=== PATIENT | male | born 1945 | race Caucasian/White ===

== ENCOUNTER → 2017-07-13 | Outpatient (CLI) | payer MEDICARE, OTHER ==
--- NOTE | 2017-07-13 10:56 | FL ---
EXAMINATION TYPE: FL barium swallow w video DATE OF EXAM: 07/13/2017 MODIFIED SWALLOW / DEGLUTITION STUDY CLINICAL HISTORY: Dysphagia. Pneumonitis due to inhalation of fluid or vomiting per order. TECHNIQUE: Deglutition study is performed utilizing thin liquid barium and barium thick applesauce. A total 40 seconds of fluoroscopic time was utilized during procedure. Approximately 10 cine sequence s were performed, no images are sent to PACS. COMPARISON: None. FINDINGS: The oral and pharyngeal phases show satisfactory initiation and propagation with all modali ties tested. There is no evidence of penetration or aspiration with any modality tested. No signifi cant pharyngeal residue was appreciated. IMPRESSION: Normal deglutition study. Please refer to speech therapist notes for further details if necessary.
== END | disposition home or self-care (01) ==
LOC: RADFLWHC 09:36
PROVIDERS: ATTEND Family Medicine
DX: J69.0 Pneumonitis due to inhalation of food and vomit (principal)
CPT/HCPCS: 74230

== ENCOUNTER → 2018-05-02 | Outpatient (CLI) | payer MEDICARE, OTHER ==
[2018-05-02 09:45] LABS: Basophils % (A) 0 %; Eosinophils # (A) 0.3 k/uL (0-0.7); Eosinophils % (A) 4 %; HCT 46.1 % (39.0-53.0); HGB 14.2 gm/dL (13.0-17.5); Lymphocytes # (A) 1.2 k/uL (1.0-4.8); Lymphocytes % (A) 16 %; MCH 28.5 pg (25.0-35.0); MCHC 30.9 g/dL (31.0-37.0); MCV 92.1 fL (80.0-100.0); Mean Platelet Volume 7.5; Monocytes # (A) 0.7 k/uL (0-1.0); Monocytes % (A) 9 %; Neutrophils # (A) 5.4 k/uL (1.3-7.7); Neutrophils % (A) 68 %; Platelet Count 283 k/uL (150-450); RDW 13.1 % (11.5-15.5); WBC 7.8 k/uL (3.8-10.6)
[2018-05-02 10:29] LABS: ALT 30 U/L (21-72); AST 30 U/L (17-59); Albumin 4.1 g/dL (3.5-5.0); Alkaline Phosphatase 85 U/L (38-126); Anion Gap 8 mmol/L; Blood Urea Nitrogen 26 mg/dL (9-20); Calcium 9.5 mg/dL (8.4-10.2); Carbon Dioxide 27 mmol/L (22-30); Chloride 103 mmol/L (98-107); Glucose 76 mg/dL (74-99); Potassium 5.3 mmol/L (3.5-5.1); Sodium 138 mmol/L (137-145); Total Bilirubin 0.3 mg/dL (0.2-1.3); Total Protein 7.3 g/dL (6.3-8.2)
== END | disposition home or self-care (01) ==
LOC: LABWHC1 08:36
PROVIDERS: ATTEND Psychiatry & Neurology Neurology
DX: E87.1 Hypo-osmolality and hyponatremia (principal); G40.909 Epilepsy, unspecified, not intractable, without status epilepticus; T42.1X5A Adverse effect of iminostilbenes, initial encounter
CPT/HCPCS: 36415; 80053; 85025

== ENCOUNTER → 2019-10-26 | Outpatient (CLI) | payer MEDICARE, OTHER ==
--- NOTE | 2019-10-26 12:10 | XR ---
EXAMINATION TYPE: XR shoulder complete RT DATE OF EXAM: 10/26/2019 CLINICAL HISTORY: Unknown injury with pain. TECHNIQUE: 2 views of the right shoulder are obtained. COMPARISON: None. FINDINGS: Exam suboptimal as there is underpenetration. There is suspected moderate narrowing at acro mion navicular joint. No acute fracture is evident. Glenohumeral joint is maintained. Overlying cloth ing material is seen. Visualized right RIBS are unremarkable. Osseous structures noted demineralized. IMPRESSION suboptimal study without acute fracture or dislocation right shoulder.
== END | disposition home or self-care (01) ==
LOC: RADXRMAIN 11:03
PROVIDERS: ATTEND Family Medicine
DX: M25.511 Pain in right shoulder (principal)

== ENCOUNTER → 2020-03-12 | Outpatient (CLI) | payer MEDICARE, OTHER ==
--- NOTE | 2020-03-12 10:12 | XR ---
EXAMINATION TYPE: XR abdomen 2V DATE OF EXAM: 03/12/2020 COMPARISON: 03/12/2020 HISTORY: Constipation TECHNIQUE: One view abdominal series FINDINGS: The osseous structures are intact. The bowel gas pattern is nonspecific. Extensive retained fecal de bris. Lung bases are clear. Curvature of the spine. Postoperative change left hip and arthropathy ri ght hip. Postsurgical change of the pelvis. IMPRESSION: 1. Nonspecific abdomen. Extensive retained fecal debris.
== END | disposition home or self-care (01) ==
LOC: RADXRMAIN 09:50
PROVIDERS: ATTEND Family Medicine
DX: K59.09 Other constipation (principal)
CPT/HCPCS: 74019

== ENCOUNTER 2020-03-15 16:42 | Inpatient (IN) | payer MEDICARE, OTHER ==
--- NOTE | 2020-03-15 17:13 | ED ---
Abdominal Pain HPI - General Source: patient Mode of arrival: ambulatory Limitations: no limitations <Sim Hollis - Last Filed: 03/16/20 00:22> <Tawanna Jackson - Last Filed: 03/24/20 00:41> - General Chief Complaint: Abdominal Pain Stated Complaint: constipation Time Seen by Provider: 03/15/20 16:51 - History of Present Illness Initial Comments: Patient is a 74-year-old male with history of developmental leg presenting to the emergency department with a chief complaint of constipation. Caregiver states the patient takes daily stool softeners and has not had an issue with constipation for over the last year. States the patient did not have a bowel movement yesterday but did have a small to medium sized after an enema. Caregiver states the patient's abdomen feels distended more usual and he is in d iscomfort when palpating the abdomen. States the patient does not have any urinary symptoms. No vomiting according to the caregiver. (Sim Hollis) - Related Data Home Medications Medication Instructions Recorded Confirmed Acetaminophen [Tylenol] 650 mg PO Q8H PRN 03/15/20 03/15/20 Calcium Polycarbophil [Fiber-Lax] 625 mg PO TID@0730,1600,192903/15/20 03/15/20 Docusate [Colace] 100 mg PO DAILY@72903/15/20 03/15/20 Doxazosin Mesylate 8 mg PO DAILY@192903/15/20 03/15/20 Ferrous Sulfate [Iron] 325 mg PO DAILY@72903/15/20 03/15/20 Fluocinonide 1 applic TOPICAL DAILY PRN 03/15/20 03/15/20 Fluticasone Nasal [place] [Flonase 2 spr EA NOSTRIL HS PRN 03/15/20 03/15/20 Nasal [place]] Ibuprofen [Motrin] 800 mg PO Q8H PRN 03/15/20 03/15/20 Lactulose 10 gm PO DAILY PRN 03/15/20 03/15/20 Loratadine 10 mg PO DAILY@192903/15/20 03/15/20 Losartan Potassium 50 mg PO DAILY@72903/15/20 03/15/20 Magnesium Hydroxide [Milk of 2,400 mg PO ONCE PRN 03/15/20 03/15/20 Magnesia] Menthol [Biofreeze] 1 applic TOPICAL QID PRN 03/15/20 03/15/20 Menthol-Zinc Oxide Oint 1 applic TOPICAL BID PRN 03/15/20 03/15/20 [Calmoseptine Oint] Na Phos,M-B/Na Phos,Di-Ba [Fleet 133 ml RECTAL ONCE PRN 03/15/20 03/15/20 Adult] Nystatin 100,000 Unit/gm Powd 1 applic TOPICAL BID PRN 03/15/20 03/15/20 [Mycostatin Powder] OXcarbazepine [Trileptal] 150 mg PO BID@07,192903/15/20 03/15/20 Omeprazole 20 mg PO DAILY@72903/15/20 03/15/20 Polyethylene Glycol 3350 [Miralax] 17 gm PO DAILY PRN 03/15/20 03/15/20 QUEtiapine [SEROquel] 50 mg PO HS@192903/15/20 03/15/20 QUEtiapine [SEROquel] 100 mg PO HS@192903/15/20 03/15/20 Selenium Sulfate Shampoo 1 applic TOPICAL SUWE 03/15/20 03/15/20 Sodium Bicarbonate Tab 650 mg PO BID@0730,192903/15/20 03/15/20 Sodium Chloride 0.9% Irrigatio 5 ml IRRIGATION BID@729,192903/15/20 03/15/20 [Saline 0.9% Irrigation Bottle] Previous Rx's Medication Instructions Recorded Metoclopramide [Reglan] 5 mg PO ACHS #120 tab 03/20/20 Allergies Allergy/AdvReac Type Severity Reaction Status Date / Time amoxicillin Allergy Unknown Verified 03/15/20 21:32 orange Allergy Unknown Verified 03/15/20 22:04 tetracycline Allergy Unknown Verified 03/15/20 21:32 tomato Allergy Unknown Verified 03/15/20 22:04 Review of Systems ROS Other: All systems not noted in ROS Statement are negative. <Sim Hollis - Last Filed: 03/16/20 00:22> ROS Other: All systems not noted in ROS Statement are negative. <Tawanna Jackson - Last Filed: 03/24/20 00:41> ROS Statement: Those systems with pertinent positive or pertinent negative responses have been documented in the HPI. Past Medical History Past Medical History: Prostate Disorder, Seizure Disorder Additional Past Medical History / Comment(s): "intellectual disability", blind, osteoporosis History of Any Multi-Drug Resistant Organisms: None Reported Additional Past Surgical History / Comment(s): hip replacement Past Psychological History: No Psychological Hx Reported Smoking Status: Never smoker Past Alcohol Use History: None Reported Past Drug Use History: None Reported <Sim Hollis - Last Filed: 03/16/20 00:22> General Exam Limitations: no limitations General appearance: alert, in no apparent distress Head exam: Present: atraumatic, normocephalic, normal inspection Eye exam: Present: normal appearance, PERRL, EOMI Pupils: Present: normal accommodation ENT exam: Present: normal exam, normal oropharynx, mucous membranes moist Neck exam: Present: normal inspection, full ROM Respiratory exam: Present: normal lung sounds bilaterally. Absent: respiratory distress, wheezes, rales Cardiovascular Exam: Present: regular rate, normal rhythm, normal heart sounds GI/Abdominal exam: Present: soft, distended, hyperactive bowel sounds Extremities exam: Present: normal inspection, full ROM, normal capillary refill, other (+2 ulnar and radial pulses bilateral.) Back exam: Present: normal inspection, full ROM Neurological exam: Present: alert Skin exam: Present: warm, dry, intact, normal color <Sim Hollis - Last Filed: 03/16/20 00:22> Course Vital Signs 03/15/20 03/15/20 03/16/20 16:44 21:23 00:48 Temperature 97.9 F 98.0 F 98.8 F Pulse Rate 100 104 H 101 H Respiratory 20 18 19 Rate Blood Pressure 120/83 146/84 147/97 O2 Sat by Pulse 98 96 95 Oximetry Medical Decision Making - Lab Data Result diagrams: 03/15/20 23:40 03/15/20 22:21 <Sim Hollis - Last Filed: 03/16/20 00:22> - Lab Data Result diagrams: 03/18/20 07:21 03/18/20 07:21 <Tawanna Jackson - Last Filed: 03/24/20 00:41> - Medical Decision Making Patient is 74-year-old male with history of developmental delay presenting to emergency Department the chief complaint of constipation. Patient does appear to have a distended abdomen and physical examination. Unable to assess for tenderness because the patient is nonverbal. CBC shows mild anemia. BMP shows elevated BUN with slight decrease and creatinine. Lactic acid within normal limits. CT of abdomen and pelvis pending. KUB shows constipation, dilated stomach suggesting gastroparesis or gastric outlet obstruction. Stomach dilation is increased compared to old exam. Patient had an enema 2 days ago that was prescribed to him by his PCP. Patient also had an enema today prior to ED arrival. Patient had an enema, milk of molasses today that was unsucces sful. No NG tube required at this time considering the patient is not vomiting. Patient will be admitted for further medical management. Case discussed with . Admitting physician is (Sim Hollis) I was available for consultation in the emergency department. The history and physical exam were done by the midlevel provider. I was consulted for this patients care. I reviewed the case with the midlevel provider and based on their presentation of the patient, I agree with the assessment, medical decision making and plan of care as documented. I discussed the case with Dr. Watson who agreed to admission. Chart was dictated using [employer] dictation software. Attempts were made to correct any dictation errors however some typographical errors may persist. Patient was seen during a national state of emergency due to the Covid-19 pandemic. (Tawanna Jackson) - Lab Data Lab Results 03/15/20 03/15/20 03/15/20 Range/Units 22:21 22:42 22:56 WBC (3.8-10.6) k/uL RBC (4.30-5.90) m/uL Hgb (13.0-17.5) gm/dL Hct (39.0-53.0) % MCV (80.0-100.0) fL MCH (25.0-35.0) pg MCHC (31.0-37.0) g/dL RDW (11.5-15.5) % Plt Count (150-450) k/uL Neutrophils % (Manual) % Lymphocytes % (Manual) % Monocytes % (Manual) % Neutrophils # (Manual) (1.3-7.7) k/uL Lymphocytes # (Manual) (1.0-4.8) k/uL Monocytes # (Manual) (0-1.0) k/uL Nucleated RBCs (0-0) /100 WBC Manual Slide Review Anisocytosis (manual) PT (9.0-12.0) sec INR (<1.2) APTT (22.0-30.0) sec Sodium 136 L (137-145) mmol/L Potassium 4.9 (3.5-5.1) mmol/L Chloride 105 (98-107) mmol/L Carbon Dioxide 25 (22-30) mmol/L Anion Gap 6 mmol/L BUN 26 H (9-20) mg/dL Creatinine 0.50 L (0.66-1.25) mg/dL Est GFR (CKD-EPI)AfAm >90 (>60 ml/min/1.73 sqM) Est GFR (CKD-EPI)NonAf >90 (>60 ml/min/1.73 sqM) Glucose 119 H (74-99) mg/dL Plasma Lactic Acid Jeremias 1.1 (0.7-2.0) mmol/L Calcium 9.3 (8.4-10.2) mg/dL Total Bilirubin 0.4 (0.2-1.3) mg/dL AST 47 (17-59) U/L ALT 29 (4-49) U/L Alkaline Phosphatase 77 (38-126) U/L Total Protein 7.4 (6.3-8.2) g/dL Albumin 4.0 (3.5-5.0) g/dL Coronavirus (PCR) Not Detected (Not Detected) 03/15/20 03/16/20 Range/Units 23:40 14:25 WBC 14.3 H (3.8-10.6) k/uL RBC 3.92 L (4.30-5.90) m/uL Hgb 11.9 L (13.0-17.5) gm/dL Hct 36.1 L (39.0-53.0) % MCV 92.0 (80.0-100.0) fL MCH 30.5 (25.0-35.0) pg MCHC 33.1 (31.0-37.0) g/dL RDW 13.3 (11.5-15.5) % Plt Count (150-450) k/uL Neutrophils % (Manual) 79 % Lymphocytes % (Manual) 11 % Monocytes % (Manual) 10 % Neutrophils # (Manual) 11.30 H (1.3-7.7) k/uL Lymphocytes # (Manual) 1.57 (1.0-4.8) k/uL Monocytes # (Manual) 1.43 H (0-1.0) k/uL Nucleated RBCs 0 (0-0) /100 WBC Manual Slide Review Performed Anisocytosis (manual) Present PT 10.8 (9.0-12.0) sec INR 1.1 (<1.2) APTT 26.2 (22.0-30.0) sec Sodium (137-145) mmol/L Potassium (3.5-5.1) mmol/L Chloride (98-107) mmol/L Carbon Dioxide (22-30) mmol/L Anion Gap mmol/L BUN (9-20) mg/dL Creatinine (0.66-1.25) mg/dL Est GFR (CKD-EPI)AfAm (>60 ml/min/1.73 sqM) Est GFR (CKD-EPI)NonAf (>60 ml/min/1.73 sqM) Glucose (74-99) mg/dL Plasma Lactic Acid Jeremias (0.7-2.0) mmol/L Calcium (8.4-10.2) mg/dL Total Bilirubin (0.2-1.3) mg/dL AST (17-59) U/L ALT (4-49) U/L Alkaline Phosphatase (38-126) U/L Total Protein (6.3-8.2) g/dL Albumin (3.5-5.0) g/dL Coronavirus (PCR) (Not Detected) Disposition Is patient prescribed a controlled substance at d/c from ED?: No Time of Disposition: 00:26 <Sim Hollis - Last Filed: 03/16/20 00:22> <Tawanna Jackson - Last Filed: 03/24/20 00:41> Clinical Impression: Abdominal distention, Constipation, Dilation of stomach Disposition: ADMITTED IP TO THIS HOSP Condition: Good
--- NOTE | 2020-03-15 17:48 | XR ---
EXAMINATION TYPE: XR KUB DATE OF EXAM: 03/15/2020 COMPARISON: 03/12/2020 HISTORY: Constipation TECHNIQUE: 2 views supine FINDINGS: There is dilated air-filled stomach. There is retained fecal material in the large bowel. T here is left hip prosthesis. There is slight blunting right costophrenic angle. There is no evidence of free air. IMPRESSION: Constipation. Dilated stomach suggestive of gastroparesis or gastric outlet obstruction. Mild pleural reaction at the right lung base. No free air. Constipation similar to old exam. Dilated stomach is a change compared to old exam.
[2020-03-15 23:04] LABS: ALT 29 U/L (4-49); AST 47 U/L (17-59); African American GFR (CKD) >90 (>60 ml/min/1.73 sqM); Alkaline Phosphatase 77 U/L (38-126); Anion Gap 6 mmol/L; Blood Urea Nitrogen 26 mg/dL (9-20); Calcium 9.3 mg/dL (8.4-10.2); Carbon Dioxide 25 mmol/L (22-30); Chloride 105 mmol/L (98-107); Glucose 119 mg/dL (74-99); Non-African American GFR(CKD) >90 (>60 ml/min/1.73 sqM); Sodium 136 mmol/L (137-145); Total Bilirubin 0.4 mg/dL (0.2-1.3); Total Protein 7.4 g/dL (6.3-8.2)
[2020-03-15 23:07] LABS: Potassium 4.9 mmol/L (3.5-5.1)
[2020-03-16 00:15] LABS: HCT 36.1 % (39.0-53.0); HGB 11.9 gm/dL (13.0-17.5); MCH 30.5 pg (25.0-35.0); MCHC 33.1 g/dL (31.0-37.0); Mean Platelet Volume 10.1; RBC 3.92 m/uL (4.30-5.90); RDW 13.3 % (11.5-15.5); WBC 14.3 k/uL (3.8-10.6)
[2020-03-16] MEDS ORDERED: NALOXONE 0.4 MG/ML 1 ML VIAL IV PRN (00:20)
[2020-03-16] MEDS ORDERED: LORazepam 2 MG/ML INJ IV PRN (00:20)
[2020-03-16] MEDS: SODIUM CHLORIDE 0.9% 1,000 ML IV SCH ×2 (00:47→14:14)
[2020-03-16 00:53] LABS: Lymphocytes # (M) 1.57 k/uL (1.0-4.8); Monocytes # (M) 1.43 k/uL (0-1.0); Neutrophils % (M) 79 %; Nucleated Red Blood Cells 0 /100 WBC (0-0); Total Cells Counted 100
[2020-03-16 00:57] LABS: Anisocytosis (M) Present
--- NOTE | 2020-03-16 00:57 | CT ---
EXAMINATION TYPE: CT abdomen pelvis w con DATE OF EXAM: 03/16/2020 COMPARISON: None HISTORY: constipated CT DLP: 1631.3 mGycm Automated exposure control for dose reduction was used. CONTRAST: Performed with IV Contrast, patient injected with 100 mL of Isovue 300. There is some interstitial infiltrates and atelectasis at the lung bases. There is hiatal hernia that contains fluid. Stomach is large and dilated with air and fluid. There is probably dilated thoracic esophagus with reflux of fluid. Liver shows no focal defect. Gallbladder appears normal. Bile ducts are not dilated. Spleen is intact . There is no evidence of pancreatic mass. There is no adrenal mass. Kidneys show satisfactory contra st opacification. There is no hydronephrosis. Delayed images show normal renal excretion. There is no retroperitoneal adenopathy. Ureters are not dilated. Bladder distends smoothly. There is no free fluid in the pelvis. There is metal artifact from left hip prosthesis. There is some retained fecal material in the large bowel. There is no evidence of free air. There is no mesenteric edema. There is no ascites. Appendix is not seen. There is no sign of thickened appendi x. Lumbar vertebra have normal alignment. Disc spaces are fairly normal. Bony pelvis is intact. I see no bony destructive process. IMPRESSION: Constipation. Dilated air and fluid-filled stomach could relate to significant gastroparesis or gastric outlet obst ruction. No obstructing mass identified. Third and fourth part of the duodenum are not dilated. Dilat ed lower thoracic fluid-filled esophagus suggestive of reflux. Hiatal hernia.
[2020-03-16] MEDS ORDERED: LACTULOSE 20 GM/30 ML CUP PO PRN (07:50)
[2020-03-16] MEDS ORDERED: ACETAMINOPHEN TAB 325 MG TAB PO PRN (07:50)
[2020-03-16] MEDS ORDERED: METHYL SALICYLATE/MENTHOL CREAM 5 OZ TOPICAL PRN (07:50)
[2020-03-16] MEDS ORDERED: MENTHOL-ZINC OXIDE OINT 113 GM TUBE TOPICAL PRN (07:50)
[2020-03-16] MEDS ORDERED: BETAMETHASONE DIPROPIONATE 0.05% CREAM 15 GM TUBE TOPICAL PRN (07:50)
[2020-03-16] MEDS ORDERED: NYSTATIN 100,000 UNIT/GM POWD 15 GM TOPICAL PRN (07:50)
[2020-03-16] MEDS ORDERED: POLYETHYLENE GLYCOL 3350 17 GM POWD.PACK PO PRN (07:50)
[2020-03-16] MEDS ORDERED: FLUTICASONE 50MCG/SPRAY NASAL 16GM EA NOSTRIL PRN (07:50)
--- NOTE | 2020-03-16 08:28 | P.HPIM ---
History of Present Illness H&P Date: 03/16/20 74 years old male with the history of developmental delay patient of Dr. Juares with past medical history of prostate cancer, seizure disorder, osteoporosis , legally blind comes in with acute abdominal pain which is generalized in nature. Patient is a poor historian due to his intellectual disability and is unable to provide any history. According to the ER physician and the caregiver history patient takes daily stool softener has been and had not had any issue with constipation in the past. He did not have a bowel movement daily for yesterday. He gets enema regularly but had a small output to the enema given yesterday. Caregiver felt the abdomen was more distended and sujey jewell had discomfort when palpating the abdomen. CT abdomen and pelvis was done in the ER that suggested some Hytone hernia with the dilation of stoma with air and fluid level and dilated esophagus concerning for gastric outlet obstruction versus gastroparesis. Fecal matter was noted in the large bowel but no concern for infection was made. Vitals as a stable temp is 98 pulse 104 respiratory ra te 18 blood pressure 146/84 oxygen saturation 96% on room air. On assessment patient's labs WBC 14.3 hemoglobin is 11.9 sodium 136 BUN 26 creatinine 0.5 glucose of 119. Patient did get milk of molasses yesterday with no improvement and hence bowel movements. Patient's multiple medications for inducing constipation continue sodium bicarb, calcium tablets, iron tablets. GI consulted for abdominal pain, gastric outlet obstruction noted on the CAT scan. Review of Systems Unable to obtain due to intellectual disability Past Medical History Past Medical History: Prostate Disorder, Seizure Disorder Additional Past Medical History / Comment(s): "intellectual disability", blind, osteoporosis History of Any Multi-Drug Resistant Organisms: None Reported Additional Past Surgical History / Comment(s): hip replacement Past Psychological History: No Psychological Hx Reported Smoking Status: Never smoker Past Alcohol Use History: None Reported Past Drug Use History: None Reported Medications and Allergies Home Medications Medication Instructions Recorded Confirmed Type Acetaminophen [Tylenol] 650 mg PO Q8H PRN 03/15/20 03/15/20 History Calcium Carbonate/Vitamin D3 1 tab PO DAILY@0730 03/15/20 03/15/20 History [Calcium 500-Vit D3 200 Tablet] Calcium Polycarbophil [Fiber-Lax] 625 mg PO TID@0730,1600,1930 03/15/2003/15/20 History Docusate [Colace] 100 mg PO DAILY@72903/15/20 03/15/20 History Doxazosin Mesylate 8 mg PO DAILY@192903/15/20 03/15/20 History Ferrous Sulfate [Iron] 325 mg PO DAILY@72903/15/20 03/15/20 History Fluocinonide 1 applic TOPICAL DAILY PRN 03/15/20 03/15/20 History Fluticasone Nasal [place] [Flonase 2 spr EA NOSTRIL HS PRN 03/15/20 03/15/20 History Nasal [place]] Ibuprofen [Motrin] 800 mg PO Q8H PRN 03/15/20 03/15/20 History Lactulose 10 gm PO DAILY PRN 03/15/20 03/15/20 History Loratadine 10 mg PO DAILY@192903/15/20 03/15/20 History Losartan Potassium 50 mg PO DAILY@72903/15/20 03/15/20 History Magnesium Hydroxide [Milk of 2,400 mg PO ONCE PRN 03/15/20 03/15/20 History Magnesia] Menthol [Biofreeze] 1 applic TOPICAL QID PRN 03/15/20 03/15/20 History Menthol-Zinc Oxide Oint 1 applic TOPICAL BID PRN 03/15/20 03/15/20 History [Calmoseptine Oint] Na Phos,M-B/Na Phos,Di-Ba [Fleet 133 ml RECTAL ONCE PRN 03/15/20 03/15/20 History Adult] Nystatin 100,000 Unit/gm Powd 1 applic TOPICAL BID PRN 03/15/20 03/15/20 History [Mycostatin Powder] OXcarbazepine [Trileptal] 150 mg PO BID@0730,192903/15/20 03/15/20 History Omeprazole 20 mg PO DAILY@72903/15/20 03/15/20 History Polyethylene Glycol 3350 [Miralax] 17 gm PO DAILY PRN 03/15/20 03/15/20 History QUEtiapine [SEROquel] 50 mg PO HS@192903/15/20 03/15/20 History QUEtiapine [SEROquel] 100 mg PO HS@192903/15/20 03/15/20 History Selenium Sulfate Shampoo 1 applic TOPICAL SUWE 03/15/20 03/15/20 History Sodium Bicarbonate Tab 650 mg PO BID@0730,192903/15/20 03/15/20 History Sodium Chloride 0.9% Irrigatio 5 ml IRRIGATION BID@0730,192903/15/20 03/15/20 History [Saline 0.9% Irrigation Bottle] Allergies Allergy/AdvReac Type Severity Reaction Status Date / Time amoxicillin Allergy Unknown Verified 03/15/20 21:32 orange Allergy Unknown Verified 03/15/20 22:04 tetracycline Allergy Unknown Verified 03/15/20 21:32 tomato Allergy Unknown Verified 03/15/20 22:04 Physical Exam Vitals: Vital Signs Temp Pulse Pulse Resp BP BP Pulse Ox 03/16/20 04:50 99.6 F 80 17 110/68 95 03/16/20 02:16 98.9 F 85 19 134/75 99 03/16/20 00:48 98.8 F 101 H 19 147/97 95 03/15/20 21:23 98.0 F 104 H 18 146/84 96 03/15/20 16:44 97.9 F 100 20 120/83 98 Intake and Output 03/15/20 03/16/20 03/16/20 22:59 06:59 14:59 Intake Total 300 Balance 300 Intake: Intake, IV Titration 300 Amount Sodium Chloride 0.9% 1, 300 000 ml @ 75 mls/hr IV . [id number] [facility] Rx#:[id number] Oral 0 Other: Voiding Method Incontinent # Voids 1 Weight 71.214 kg - Constitutional General appearance: cooperative, no acute distress, thin-appearing appears comfortable - EENT Eyes: eyes closed, no orbits, tongue sticking out ENT: hearing grossly normal - Neck Neck: no lymphadenopathy, normal ROM, no other, no rigidity, no stridor, no thyromegaly - Respiratory Respiratory: bilateral: CTA, negative: diminished, dullness, rales, rhonchi - Cardiovascular Rhythm: regular Heart sounds: normal: S1, S2 Abnormal Heart Sounds: no systolic murmur, no diastolic murmur, no rub, no S3 Gallop, no S4 Gallop, no click, no other - Gastrointestinal General gastrointestinal: normal bowel sounds, soft distended tender to palpate - Integumentary Integumentary: no rash - Neurologic Neurologic: CNII-XII intact - Musculoskeletal Musculoskeletal: gait not assessed, strength equal bilaterally,, hands in partial flexion , b/l lower ext in boot - Psychiatric Psychiatric: Orientation could not be assessed, appropriate affect Results CBC & Chem 7: 03/15/20 23:40 03/15/20 22:21 Labs: Abnormal Lab Results - Last 24 Hours (Table) 03/15/20 03/15/20 Range/Units 22:21 23:40 WBC 14.3 H (3.8-10.6) k/uL RBC 3.92 L (4.30-5.90) m/uL Hgb 11.9 L (13.0-17.5) gm/dL Hct 36.1 L (39.0-53.0) % Neutrophils # (Manual) 11.30 H (1.3-7.7) k/uL Monocytes # (Manual) 1.43 H (0-1.0) k/uL Sodium 136 L (137-145) mmol/L BUN 26 H (9-20) mg/dL Creatinine 0.50 L (0.66-1.25) mg/dL Glucose 119 H (74-99) mg/dL Thrombosis Risk Factor Assmnt - DVT/VTE Prophylaxis DVT/VTE Prophylaxis: Pharmacologic Prophylaxis ordered Assessment and Plan Plan: #1 acute abdominal pain likely secondary to constipation though gastric outlet obstruction noted on CAT scan. Surgery consulted for possible EGD for dilation. Patient has failed milk of molasses anemia continue lactulose 10 mg daily continue Colace 100 mg twice a day continue MiraLAX daily. Hold calcium on discharge that could be making patient constipated. Patient hemoglobin is stable iron supplement discontinued. #2 hypertension continue losartan 50 mg by mouth daily #3 acute kidney injury continue IV fluids at 75 mL/h BMP tomorrow #4 history of seizures continue Seroquel at 150 mg at bedtime continue Trileptal 150 twice a day #5Code status full code #6 disposition patient needed to use 1-2 inpatient nights for stabilization before discharge #7 GERD continue pantoprazole 40 mg by mouth daily #8 DVT prophylaxis heparin sq BID
[2020-03-16] MEDS: HEPARIN SODIUM,PORCINE 5,000 UNIT/ML 1 ML VIAL SQ SCH ×2 (09:11→20:44)
[2020-03-16] MEDS: PANTOPRAZOLE 40 MG TABLET PO SCH (13:05)
[2020-03-16] MEDS: OXcarbazepine 150 MG TAB PO SCH ×2 (13:06→20:44)
[2020-03-16] MEDS: LOSARTAN 50 MG TAB PO SCH (13:06)
[2020-03-16] MEDS: DOCUSATE 100 MG CAP PO SCH ×2 (13:06→20:43)
[2020-03-16] MEDS: [UNRECOGNIZED DRUG - OTHER] TOPICAL SCH (13:06)
--- NOTE | 2020-03-16 14:05 | P.GSCN ---
History of Present Illness Consult date: 03/16/20 Reason for Consult: Abdominal distention History of present illness: The patient's a 74-year-old male who has developmental delays. He's been noted to be progressively more distended and there is concern for discomfort in his abdomen so he is brought into the emergency department. Workup was concerning for markedly distended stomach and esophagus. I spoke with the patient's sister who is legal guardian. She denies any prior history of ulcer disease. In general he doesn't complain of any pain. He does take Stool softeners and enemas for some constipation Review of Systems All systems: negative Past Medical History Past Medical History: Prostate Disorder, Seizure Disorder Additional Past Medical History / Comment(s): "intellectual disability", blind, osteoporosis History of Any Multi-Drug Resistant Organisms: None Reported Additional Past Surgical History / Comment(s): hip replacement Past Anesthesia/Blood Transfusion Reactions: No Reported Reaction Past Psychological History: No Psychological Hx Reported Smoking Status: Never smoker Past Alcohol Use History: None Reported Past Drug Use History: None Reported - Past Family History Father Family Medical History: Diabetes Mellitus Additional Family Medical History / Comment(s): Per sister (LG) father had DM an d heart problems Medications and Allergies Home Medications Medication Instructions Recorded Confirmed Type Acetaminophen [Tylenol] 650 mg PO Q8H PRN 03/15/20 03/15/20 History Calcium Carbonate/Vitamin D3 1 tab PO DAILY@72903/15/20 03/15/20 History [Calcium 500-Vit D3 200 Tablet] Calcium Polycarbophil [Fiber-Lax] 625 mg PO TID@0730,1600,192903/15/20 03/15/20 History Docusate [Colace] 100 mg PO DAILY@72903/15/20 03/15/20 History Doxazosin Mesylate 8 mg PO DAILY@192903/15/20 03/15/20 History Ferrous Sulfate [Iron] 325 mg PO DAILY@72903/15/20 03/15/20 History Fluocinonide 1 applic TOPICAL DAILY PRN 03/15/20 03/15/20 History Fluticasone Nasal [place] [Flonase 2 spr EA NOSTRIL HS PRN 03/15/20 03/15/20 History Nasal [place]] Ibuprofen [Motrin] 800 mg PO Q8H PRN 03/15/20 03/15/20 History Lactulose 10 gm PO DAILY PRN 03/15/20 03/15/20 History Loratadine 10 mg PO DAILY@192903/15/20 03/15/20 History Losartan Potassium 50 mg PO DAILY@72903/15/20 03/15/20 History Magnesium Hydroxide [Milk of 2,400 mg PO ONCE PRN 03/15/20 03/15/20 History Magnesia] Menthol [Biofreeze] 1 applic TOPICAL QID PRN 03/15/20 03/15/20 History Menthol-Zinc Oxide Oint 1 applic TOPICAL BID PRN 03/15/20 03/15/20 History [Calmoseptine Oint] Na Phos,M-B/Na Phos,Di-Ba [Fleet 133 ml RECTAL ONCE PRN 03/15/20 03/15/20 History Adult] Nystatin 100,000 Unit/gm Powd 1 applic TOPICAL BID PRN 03/15/20 03/15/20 History [Mycostatin Powder] OXcarbazepine [Trileptal] 150 mg PO BID@729,192903/15/20 03/15/20 History Omeprazole 20 mg PO DAILY@72903/15/20 03/15/20 History Polyethylene Glycol 3350 [Miralax] 17 gm PO DAILY PRN 03/15/20 03/15/20 History QUEtiapine [SEROquel] 50 mg PO HS@192903/15/20 03/15/20 History QUEtiapine [SEROquel] 100 mg PO HS@192903/15/20 03/15/20 History Selenium Sulfate Shampoo 1 applic TOPICAL SUWE 03/15/20 03/15/20 History Sodium Bicarbonate Tab 650 mg PO BID@729,192903/15/20 03/15/20 History Sodium Chloride 0.9% Irrigatio 5 ml IRRIGATION BID@729,192903/15/20 03/15/20 History [Saline 0.9% Irrigation Bottle] Allergies Allergy/AdvReac Type Severity Reaction Status Date / Time amoxicillin Allergy Unknown Verified 03/15/20 21:32 orange Allergy Unknown Verified 03/15/20 22:04 tetracycline Allergy Unknown Verified 03/15/20 21:32 tomato Allergy Unknown Verified 03/15/20 22:04 Surgical - Exam Osteopathic Statement: *. No significant issues noted on an osteopathic structural exam other than those noted in the History and Physical/Consult. Vital Signs Temp Pulse Resp BP Pulse Ox 97.9 F 100 20 120/83 98 03/15/20 16:44 03/15/20 16:44 03/15/20 16:44 03/15/20 16:44 03/15/20 16:44 - General No obvious distress, patient responds by moving his head slightly to verbal and tactile stimuli. - Eyes Absent or very small eyes - Respiratory normal expansion, clear to auscultation - Cardiovascular Rhythm: regular - Abdomen Abdomen: bowel sounds, no guarding, no rigid, no rebound, distended (Tympanitic) Hernia: no umbilical Results - Labs 03/15/20 23:40 03/15/20 22:21 Abnormal Lab Results - Last 24 Hours (Table) 03/15/20 03/15/20 Range/Units 22:21 23:40 WBC 14.3 H (3.8-10.6) k/uL RBC 3.92 L (4.30-5.90) m/uL Hgb 11.9 L (13.0-17.5) gm/dL Hct 36.1 L (39.0-53.0) % Neutrophils # (Manual) 11.30 H (1.3-7.7) k/uL Monocytes # (Manual) 1.43 H (0-1.0) k/uL Sodium 136 L (137-145) mmol/L BUN 26 H (9-20) mg/dL Creatinine 0.50 L (0.66-1.25) mg/dL Glucose 119 H (74-99) mg/dL Diabetes panel 03/15/20 Range/Units 22:21 Sodium 136 L (137-145) mmol/L Potassium 4.9 (3.5-5.1) mmol/L Chloride 105 (98-107) mmol/L Carbon Dioxide 25 (22-30) mmol/L BUN 26 H (9-20) mg/dL Creatinine 0.50 L (0.66-1.25) mg/dL Glucose 119 H (74-99) mg/dL Calcium 9.3 (8.4-10.2) mg/dL AST 47 (17-59) U/L ALT 29 (4-49) U/L Alkaline Phosphatase 77 (38-126) U/L Total Protein 7.4 (6.3-8.2) g/dL Albumin 4.0 (3.5-5.0) g/dL Calcium panel 03/15/20 Range/Units 22:21 Calcium 9.3 (8.4-10.2) mg/dL Albumin 4.0 (3.5-5.0) g/dL Pituitary panel 03/15/20 Range/Units 22:21 Sodium 136 L (137-145) mmol/L Potassium 4.9 (3.5-5.1) mmol/L Chloride 105 (98-107) mmol/L Carbon Dioxide 25 (22-30) mmol/L BUN 26 H (9-20) mg/dL Creatinine 0.50 L (0.66-1.25) mg/dL Glucose 119 H (74-99) mg/dL Calcium 9.3 (8.4-10.2) mg/dL Adrenal panel 03/15/20 Range/Units 22:21 Sodium 136 L (137-145) mmol/L Potassium 4.9 (3.5-5.1) mmol/L Chloride 105 (98-107) mmol/L Carbon Dioxide 25 (22-30) mmol/L BUN 26 H (9-20) mg/dL Creatinine 0.50 L (0.66-1.25) mg/dL Glucose 119 H (74-99) mg/dL Calcium 9.3 (8.4-10.2) mg/dL Total Bilirubin 0.4 (0.2-1.3) mg/dL AST 47 (17-59) U/L ALT 29 (4-49) U/L Alkaline Phosphatase 77 (38-126) U/L Total Protein 7.4 (6.3-8.2) g/dL Albumin 4.0 (3.5-5.0) g/dL - Imaging CT scan - abdomen: report reviewed, image reviewed Assessment and Plan (1) Abdominal distention Current Visit: Yes Status: Acute Code(s): R14.0 - ABDOMINAL DISTENSION (GASEOUS) SNOMED Code(s): 74719207 (2) Constipation Current Visit: Yes Status: Acute Code(s): K59.00 - CONSTIPATION, UNSPECIFIED SNOMED Code(s): 12235462 (3) Dilation of stomach Current Visit: Yes Status: Acute Code(s): K31.89 - OTHER DISEASES OF STOMACH AND DUODENUM SNOMED Code(s): 260370463 Plan: I spoke with the patient's legal guardian on the phone. Recommended we rule out any gastric outlet obstruction by doing an EGD. If there is some Chronic narrowing in the pylorus, This potentially could be treated with balloon dilation. If there is no evidence of a Gastric outlet obstruction Then I recommend aGastric emptying study. Further recommendations to follow.
[2020-03-16 14:49] LABS: INR 1.1 (<1.2); Partial Thromboplastin Time 26.2 sec (22.0-30.0); Prothrombin Time 10.8 sec (9.0-12.0)
[2020-03-16] MEDS: QUEtiapine 100 MG TAB PO SCH (20:43)
[2020-03-16] MEDS: DOXAZOSIN 4 MG TAB PO SCH (20:43)
[2020-03-16] MEDS: SODIUM CHLORIDE 0.9% IRRIG 1,000 ML BTL IRRIGATION SCH (20:49)
[2020-03-16] MEDS: QUEtiapine 50 MG TAB PO SCH (20:50)
[2020-03-17] MEDS: SODIUM CHLORIDE 0.9% 1,000 ML IV SCH ×2 (03:52→18:38)
[2020-03-17] MEDS: HEPARIN SODIUM,PORCINE 5,000 UNIT/ML 1 ML VIAL SQ SCH ×2 (08:22→20:12)
[2020-03-17] MEDS: LOSARTAN 50 MG TAB PO SCH (08:22)
[2020-03-17] MEDS: OXcarbazepine 150 MG TAB PO SCH ×2 (08:22→20:12)
[2020-03-17] MEDS: PANTOPRAZOLE 40 MG TABLET PO SCH (08:22)
[2020-03-17] MEDS: DOCUSATE 100 MG CAP PO SCH ×2 (08:22→20:12)
[2020-03-17] MEDS: SODIUM CHLORIDE 0.9% IRRIG 1,000 ML BTL IRRIGATION SCH ×2 (08:23→20:21)
--- NOTE | 2020-03-17 12:43 | P.PN ---
Subjective Progress Note Date: 03/17/20 74-year-old male with the history of developmental delay patient of Dr. Juares with past medical history of prostate cancer, seizure disorder, osteoporosis, legally blind comes in with acute abdominal pain which is generalized in nature. Patient is a poor historian due to his intellectual d isability and is unable to provide any history. According to the ER physician and the caregiver history patient takes daily stool softener has been and had not had any issue with constipation in the past. He did not have a bowel movement daily for yesterday. He gets enema regularly but had a small output to the enema given yesterday. Caregiver felt the abdomen was more distended and patient had discomfort when palpating the abdomen. CT abdomen and pelvis was done in the ER that suggested some Hytone hernia with the dilation of stoma with air and fluid level and dilated esophagus concerning for gastric outlet obstruction versus gastroparesis. Fecal matter was noted in the large bowel but no concern for infection was made. Vitals as a stable temp is 98 pulse 104 respiratory rate 18 blood pressure 146/84 oxygen saturation 96% on room air. On assessment patient's labs WBC 14.3 hemoglobin is 11.9 sodium 136 BUN 26 creatinine 0.5 glucose of 119. Patient did get milk of molasses yesterday with no improvement and hence bowel movements. Patient's multiple medications for inducing constipation continue sodium bicarb, calcium tablets, iron tablets. GI consulted for abdominal pain, gastric outlet obstruction noted on the CAT scan. 03/17: Patient has been seen by Dr. Lemons and is scheduled for EGD to rule out gastric outlet obstruction. This is scheduled for today. He has been afebrile, heart rate 62, blood pressure 100/64. Pulse ox 95% on room air. WBC 14.3 and hemoglobin 11.9. Discharge plan will be to return to [facility]. Review of Systems Unable to obtain due to intellectual disability Physical examination - Constitutional General appearance: cooperative, no acute distress, thin-appearing appears comfortable - EENT Eyes: eyes closed, no orbits, tongue sticking out ENT: hearing grossly normal - Neck Neck: no lymphadenopathy, normal ROM, no other, no rigidity, no stridor, no thyromegaly - Respiratory Respiratory: bilateral: CTA, negative: diminished, dullness, rales, rhonchi - Cardiovascular Rhythm: regular Heart sounds: normal: S1, S2 Abnormal Heart Sounds: no systolic murmur, no diastolic murmur, no rub, no S3 Gallop, no S4 Gallop, no click, no other - Gastrointestinal General gastrointestinal: normal bowel sounds, soft distended , generalized tender to palpate - Integumentary Integumentary: no rash - Neurologic Neurologic: CNII-XII intact - Musculoskeletal Musculoskeletal: gait not assessed, strength equal bilaterally,, hands in partial flexion , b/l lower ext in boot - Psychiatric Psychiatric: Orientation could not be assessed, appropriate affect Assessment and plan #1 acute abdominal pain likely secondary to constipation though gastric outlet obstruction noted on CAT scan. Surgery consulted for possible EGD for dilation. Patient has failed milk of molasses anemia continue lactulose 10 mg daily continue Colace 100 mg twice a day continue MiraLAX daily. Hold calcium on discharge that could be making patient constipated. Patient hemoglobin is stable iron supplement discontinued. #2 hypertension continue losartan 50 mg by mouth daily #3 acute kidney injury continue IV fluids at 75 mL/h BMP tomorrow #4 history of seizures continue Seroquel at 150 mg at bedtime continue Trileptal 150 twice a day #5Code status full code #6 DVT prophylaxis heparin sq BID #7 GERD continue pantoprazole 40 mg by mouth daily #8 COVID-19 infection not present. Discharge plan: Return to [facility] Impression and plan of care have been directed as dictated by the signing physician. Jenny Olvera nurse practitioner acting as scribe for signing physician. Objective - Vital Signs Vital signs: Vital Signs Temp 97.6 F 03/17/20 05:08 Pulse 62 03/17/20 05:08 Resp 12 03/17/20 05:08 BP 100/64 03/17/20 05:08 Pulse Ox 95 03/17/20 05:08 Intake & Output 03/16/20 03/17/20 03/17/20 18:59 06:59 18:59 Other: Voiding Method Diaper Diaper Incontinent Incontinent # Voids 1 1 # Bowel Movements 0 - Labs CBC & Chem 7: 03/15/20 23:40 03/15/20 22:21
[2020-03-17] MEDS ORDERED: PROPOFOL 10 MG/ML 20 ML VIAL IV ONE (14:26)
[2020-03-17] MEDS ORDERED: LIDOCAINE 1% INJ 10MG/ML (20 ML MDV) ONE (14:26)
[2020-03-17] MEDS ORDERED: IV FLUID CONTINUATION 1,000 ML IV ONE (14:29)
--- NOTE | 2020-03-17 14:50 | P.PCN ---
Date of Procedure: 03/17/20 Preoperative Diagnosis: gastric distention Postoperative Diagnosis: gastric distention, gastritis Procedure(s) Performed: EGD with biopsy Anesthesia: MAC Surgeon: Antonina Lemons Pathology: other Condition: stable Disposition: PACU Indications for Procedure: The patient presented with abdominal distention. The stomach was markedly distended on computed tomography scan with concern for gastric outlet obstruction Description of Procedure: The patient's taken to the endoscopy suite were gastroscope is passed per mouth to the third and fourth portions of the duodenum. The pharynx is unremarkable. The upper esophagus is without evidence of esophagitis or mass lesion. There is some reflux esophagitis noted in the distal esophagus. The stomach had some bile stained fluid in it. Had some chronic appearing gastritis in the body of the stomach and cold biopsies were obtained. The antrum itself looked fairly normal. The pylorus was open. There is no evidence of stricture or ulceration. Duodenal bulb and second third portions of the duodenum were without evidence of mucosal ulceration or stricture. Small hiatal hernia on retroflexion of the scope. He tolerated the procedure without difficulty and is taken to recovery room in satisfactory condition. I'll discuss this with his power of dredge mate. We'll order a gastric emptying study.
[2020-03-17] MEDS: DOXAZOSIN 4 MG TAB PO SCH (20:12)
[2020-03-17] MEDS: QUEtiapine 100 MG TAB PO SCH (20:12)
[2020-03-17] MEDS: QUEtiapine 50 MG TAB PO SCH (20:12)
[2020-03-18] MEDS: SODIUM CHLORIDE 0.9% 1,000 ML IV SCH ×2 (05:18→20:39)
[2020-03-18] MEDS: PANTOPRAZOLE 40 MG TABLET PO SCH (08:08)
[2020-03-18 08:12] LABS: HCT 33.8 % (39.0-53.0); HGB 10.7 gm/dL (13.0-17.5); MCH 29.3 pg (25.0-35.0); MCHC 31.7 g/dL (31.0-37.0); MCV 92.2 fL (80.0-100.0); Mean Platelet Volume 9.4; Platelet Count 233 k/uL (150-450); RBC 3.66 m/uL (4.30-5.90); RDW 13.4 % (11.5-15.5); WBC 6.6 k/uL (3.8-10.6)
[2020-03-18] MEDS: OXcarbazepine 150 MG TAB PO SCH ×2 (08:19→20:40)
[2020-03-18] MEDS: DOCUSATE 100 MG CAP PO SCH ×2 (08:19→20:40)
[2020-03-18] MEDS: HEPARIN SODIUM,PORCINE 5,000 UNIT/ML 1 ML VIAL SQ SCH ×2 (08:19→20:40)
[2020-03-18] MEDS: LOSARTAN 50 MG TAB PO SCH (08:20)
[2020-03-18] MEDS: SODIUM CHLORIDE 0.9% IRRIG 1,000 ML BTL IRRIGATION SCH ×2 (08:25→20:40)
[2020-03-18 09:37] LABS: ALT 24 U/L (4-49); AST 40 U/L (17-59); African American GFR (CKD) >90 (>60 ml/min/1.73 sqM); Albumin 3.1 g/dL (3.5-5.0); Alkaline Phosphatase 70 U/L (38-126); Anion Gap 5 mmol/L; Blood Urea Nitrogen 15 mg/dL (9-20); Calcium 8.5 mg/dL (8.4-10.2); Carbon Dioxide 22 mmol/L (22-30); Chloride 111 mmol/L (98-107); Glucose 76 mg/dL (74-99); Non-African American GFR(CKD) >90 (>60 ml/min/1.73 sqM); Potassium 4.4 mmol/L (3.5-5.1); Sodium 138 mmol/L (137-145); Total Bilirubin 0.4 mg/dL (0.2-1.3); Total Protein 6.1 g/dL (6.3-8.2)
--- NOTE | 2020-03-18 10:56 | P.PN ---
Subjective Progress Note Date: 03/18/20 74-year-old male with the history of developmental delay patient of Dr. Juares with past medical history of prostate cancer, seizure disorder, osteoporosis, legally blind comes in with acute abdominal pain which is generalized in nature. Patient is a poor historian due to his intellectual d isability and is unable to provide any history. According to the ER physician and the caregiver history patient takes daily stool softener has been and had not had any issue with constipation in the past. He did not have a bowel movement daily for yesterday. He gets enema regularly but had a small output to the enema given yesterday. Caregiver felt the abdomen was more distended and patient had discomfort when palpating the abdomen. CT abdomen and pelvis was done in the ER that suggested some Hytone hernia with the dilation of stoma with air and fluid level and dilated esophagus concerning for gastric outlet obstruction versus gastroparesis. Fecal matter was noted in the large bowel but no concern for infection was made. Vitals as a stable temp is 98 pulse 104 respiratory rate 18 blood pressure 146/84 oxygen saturation 96% on room air. On assessment patient's labs WBC 14.3 hemoglobin is 11.9 sodium 136 BUN 26 creatinine 0.5 glucose of 119. Patient did get milk of molasses yesterday with no improvement and hence bowel movements. Patient's multiple medications for inducing constipation continue sodium bicarb, calcium tablets, iron tablets. GI consulted for abdominal pain, gastric outlet obstruction noted on the CAT scan. 03/17: Patient has been seen by Dr. Lemons and is scheduled for EGD to rule out gastric outlet obstruction. This is scheduled for today. He has been afebrile, heart rate 62, blood pressure 100/64. Pulse ox 95% on room air. WBC 14.3 and hemoglobin 11.9. Discharge plan will be to return to [facility]. 03/18: Patient underwent EGD yesterday with Dr. Lemons which revealed gastric distention and gastritis. Patient is scheduled for gastric emptying study tomorrow which had to be delayed due to use of Protonix. Patient is currently o n clear liquid diet. He has had a few smears on his diaper but no bowel movement. Patient will be nothing by mouth after midnight. He has been afebrile, heart rate 60, blood pressure 110/64, pulse ox 94% on room air. Repeat blood work reveals normal white count of 6.6, hemoglobin 10.7, platelet count 233. Creatinine 0.57, chloride 111, Plan is for patient to return to [facility] at the time of discharge. Caregiver may come into stay with the patient today. Review of Systems Unable to obtain due to intellectual disability Physical examination - Constitutional General appearance: cooperative, no acute distress, thin-appearing appears comfortable and in no acute distress - EENT Eyes: eyes closed, no orbits, tongue sticking out ENT: hearing grossly normal - Neck Neck: no lymphadenopathy, normal ROM, no other, no rigidity, no stridor, no thyromegaly - Respiratory Respiratory: bilateral: CTA, negative: diminished, dullness, rales, rhonchi - Cardiovascular Rhythm: regular Heart sounds: normal: S1, S2 Abnormal Heart Sounds: no systolic murmur, no diastolic murmur, no rub, no S3 Gallop, no S4 Gallop, no click, no other - Gastrointestinal General gastrointestinal: normal bowel sounds, soft distended , generalized tender to palpate - Integumentary Integumentary: no rash - Neurologic Neurologic: CNII-XII intact - Musculoskeletal Musculoskeletal: gait not assessed, strength equal bilaterally, hands in partial flexion , b/l lower ext in boot - Psychiatric Psychiatric: Orientation could not be assessed, appropriate affect, quiet and withdrawn Assessment and plan #1 acute abdominal pain likely secondary to constipation, gastric outlet obs ruled out on EGD. Patient has failed milk of molasses anemia continue lactulose 10 mg daily continue Colace 100 mg twice a day continue MiraLAX daily. Hold calcium on discharge that could be making patient constipated. Patient hemoglobin is stable iron supplement discontinued. Gastric emptying study ordered for Tuesday. #2 hypertension continue losartan 50 mg by mouth daily #3 acute kidney injury continue IV fluids at 75 mL/h #4 history of seizures continue Seroquel at 150 mg at bedtime continue Trileptal 150 twice a day #5Code status full code #6 DVT prophylaxis heparin sq BID #7 GERD continue pantoprazole 40 mg by mouth daily #8 COVID-19 infection not present. Discharge plan: Return to [facility] Impression and plan of care have been directed as dictated by the signing physician. Jenny Olvera nurse practitioner acting as scribe for signing physician. Objective - Vital Signs Vital signs: Vital Signs Temp 98.1 F 03/18/20 05:52 Pulse 60 03/18/20 05:52 Resp 16 03/18/20 05:52 BP 110/64 03/18/20 05:52 Pulse Ox 94 L 03/18/20 05:52 Intake & Output 03/17/20 03/18/20 03/18/20 18:59 06:59 18:59 Intake Total 50 Balance 50 Intake: IV 50 Oral 0 Other: Voiding Method Diaper Diaper Incontinent Incontinent # Voids 1 3 # Bowel Movements 0 2 - Labs CBC & Chem 7: 03/18/20 07:21 03/18/20 07:21
--- NOTE | 2020-03-18 12:43 | P.PN ---
Progress Note - Text Progress Note Date: 03/18/20 Gastric emptying study is scheduled for tomorrow. I'll check the results tomorrow.
[2020-03-18] MEDS: DOXAZOSIN 4 MG TAB PO SCH (20:40)
[2020-03-18] MEDS: QUEtiapine 50 MG TAB PO SCH (20:40)
[2020-03-18] MEDS: QUEtiapine 100 MG TAB PO SCH (20:40)
[2020-03-19] MEDS: OXcarbazepine 150 MG TAB PO SCH ×2 (11:02→20:39)
[2020-03-19] MEDS: [UNRECOGNIZED DRUG - OTHER] TOPICAL SCH (11:03)
[2020-03-19] MEDS: HEPARIN SODIUM,PORCINE 5,000 UNIT/ML 1 ML VIAL SQ SCH ×2 (11:04→20:40)
[2020-03-19] MEDS: DOCUSATE 100 MG CAP PO SCH ×2 (12:40→20:40)
[2020-03-19] MEDS: LACTULOSE 20 GM/30 ML CUP PO SCH (12:40)
[2020-03-19] MEDS: LOSARTAN 50 MG TAB PO SCH (12:40)
[2020-03-19] MEDS: SODIUM CHLORIDE 0.9% 1,000 ML IV SCH ×2 (12:41→20:47)
[2020-03-19] MEDS: SODIUM CHLORIDE 0.9% IRRIG 1,000 ML BTL IRRIGATION SCH ×2 (12:41→20:40)
[2020-03-19 12:57] VITALS: RESP 16
--- NOTE | 2020-03-19 14:05 | P.PN ---
Subjective Progress Note Date: 03/19/20 74-year-old male with the history of developmental delay patient of Dr. Juares with past medical history of prostate cancer, seizure disorder, osteoporosis, legally blind comes in with acute abdominal pain which is generalized in nature. Patient is a poor historian due to his intellectual d isability and is unable to provide any history. According to the ER physician and the caregiver history patient takes daily stool softener has been and had not had any issue with constipation in the past. He did not have a bowel movement daily for yesterday. He gets enema regularly but had a small output to the enema given yesterday. Caregiver felt the abdomen was more distended and patient had discomfort when palpating the abdomen. CT abdomen and pelvis was done in the ER that suggested some Hytone hernia with the dilation of stoma with air and fluid level and dilated esophagus concerning for gastric outlet obstruction versus gastroparesis. Fecal matter was noted in the large bowel but no concern for infection was made. Vitals as a stable temp is 98 pulse 104 respiratory rate 18 blood pressure 146/84 oxygen saturation 96% on room air. On assessment patient's labs WBC 14.3 hemoglobin is 11.9 sodium 136 BUN 26 creatinine 0.5 glucose of 119. Patient did get milk of molasses yesterday with no improvement and hence bowel movements. Patient's multiple medications for inducing constipation continue sodium bicarb, calcium tablets, iron tablets. GI consulted for abdominal pain, gastric outlet obstruction noted on the CAT scan. 03/17: Patient has been seen by Dr. Lemons and is scheduled for EGD to rule out gastric outlet obstruction. This is scheduled for today. He has been afebrile, heart rate 62, blood pressure 100/64. Pulse ox 95% on room air. WBC 14.3 and hemoglobin 11.9. Discharge plan will be to return to [facility]. 03/18: Patient underwent EGD yesterday with Dr. Lemons which revealed gastric distention and gastritis. Patient is scheduled for gastric emptying study tomorrow which had to be delayed due to use of Protonix. Patient is currently o n clear liquid diet. He has had a few smears on his diaper but no bowel movement. Patient will be nothing by mouth after midnight. He has been afebrile, heart rate 60, blood pressure 110/64, pulse ox 94% on room air. Repeat blood work reveals normal white count of 6.6, hemoglobin 10.7, platelet count 233. Creatinine 0.57, chloride 111, Plan is for patient to return to [facility]term at the time of discharge. Caregiver may come into stay with the patient today. 03/19: Patient underwent gastric emptying study today. Report is pending. Pathology from EGD remains pending as well. Patient has been afebrile, heart rate 59, blood pressure 98/63, pulse ox 97% on room air. Patient did have a large soft bowel movement at midnight. Anticipate discharge within 24 hours. Review of Systems Unable to obtain due to intellectual disability Physical examination - Constitutional General appearance: cooperative, no acute distress, thin-appearing appears comfortable - EENT Eyes: eyes closed, no orbits, tongue sticking out ENT: hearing grossly normal - Neck Neck: no lymphadenopathy, normal ROM, no other, no rigidity, no stridor, no thyromegaly - Respiratory Respiratory: bilateral: CTA, negative: diminished, dullness, rales, rhonchi - Cardiovascular Rhythm: regular Heart sounds: normal: S1, S2 Abnormal Heart Sounds: no systolic murmur, no diastolic murmur, no rub, no S3 Gallop, no S4 Gallop, no click, no other - Gastrointestinal General gastrointestinal: normal bowel sounds, soft distended , generalized tender to palpate - Integumentary Integumentary: no rash - Neurologic Neurologic: CNII-XII intact - Musculoskeletal Musculoskeletal: gait not assessed, strength equal bilaterally, hands in partial flexion , b/l lower ext in boot - Psychiatric Psychiatric: Orientation could not be assessed, appropriate affect, quiet and withdrawn Assessment and plan #1 acute abdominal pain likely secondary to constipation, gastric outlet obs ruled out on EGD. Gastric emptying study in process. Continue Colace, lactulose, MiraLAX. Surgical consult appreciated. Hold calcium on discharge that could be making patient constipated. Patient hemoglobin is stable iron supplement discontinued. Gastric emptying study ordered for Tuesday. #2 hypertension continue losartan 50 mg by mouth daily #3 acute kidney injury continue IV fluids at 75 mL/h #4 history of seizures continue Seroquel at 150 mg at bedtime continue Trileptal 150 twice a day #5Code status full code #6 DVT prophylaxis heparin sq BID #7 GERD continue pantoprazole 40 mg by mouth daily #8 COVID-19 infection not present. Discharge plan: Return to [facility] Impression and plan of care have been directed as dictated by the signing physician. Jenny Olvera nurse practitioner acting as scribe for signing physician. Objective - Vital Signs Vital signs: Vital Signs Temp 98.1 F 03/19/20 05:15 Pulse 59 L 03/19/20 05:15 Resp 18 03/19/20 05:15 BP 98/63 03/19/20 05:15 Pulse Ox 97 03/19/20 05:15 Intake & Output 03/18/20 03/19/20 03/19/20 18:59 06:59 18:59 Intake Total 1690 Balance 1690 Intake: Intake, IV Titration 1100 Amount Sodium Chloride 0.9% 1, 1100 000 ml @ 75 mls/hr IV . [id number] [facility] Rx#:[id number] Oral 590 Other: Voiding Method Diaper Diaper Incontinent Incontinent # Voids 1 2 # Bowel Movements 1 1 - Labs CBC & Chem 7: 03/18/20 07:21 03/18/20 07:21 Labs: Abnormal Lab Results - Last 24 Hours (Table) 03/18/20 03/18/20 Range/Units 07:21 07:21 RBC 3.66 L (4.30-5.90) m/uL Hgb 10.7 L (13.0-17.5) gm/dL Hct 33.8 L (39.0-53.0) % Chloride 111 H (98-107) mmol/L Creatinine 0.57 L (0.66-1.25) mg/dL Total Protein 6.1 L (6.3-8.2) g/dL Albumin 3.1 L (3.5-5.0) g/dL
--- NOTE | 2020-03-19 14:19 | NM ---
EXAMINATION TYPE: NM gastric emptying static DATE OF EXAM: 03/19/2020 COMPARISON: NONE HISTORY: 74-year-old male gastric distention TECHNIQUE: Following administration of 1.8 mCi Tc 99m Sulfur Colloid with a solid meal ( 2oz eggs and one bite of toast), anterior projection images of the abdomen were obtained 15min minutes post inges tion. FINDINGS: Patient Emptying Values 1 Hour 2% % (normal, 10-70%) 2 Hours 42% % (normal, greater than or equal to 40%) 3 Hours 77% % (normal, greater than 70%) 4 Hours 88% % (normal, greater than 90%) Gastroesophageal reflux: None T 1/2 = 134 minutes (normal range for a solid meal is 60-105 minutes post) IMPRESSION: 1. Special needs patient ingested only a portion of the meal. This may affect the accuracy of the exa m. 2. Increased T 1/2 and slow gastric emptying at the 1 hour and 4 hour time points. Unable to exclude gastroparesis
--- NOTE | 2020-03-19 15:56 | P.PN ---
Progress Note - Text Progress Note Date: 03/19/20 The patient went for his gastric emptying study this morning. He didn't eat much. That may affect the test but the test was suggestive of gastroparesis. Recommendation would be a trial of low-dose Reglan before meals. Currently nonsurgical.
[2020-03-19] MEDS: DOXAZOSIN 4 MG TAB PO SCH (20:39)
[2020-03-19] MEDS: QUEtiapine 100 MG TAB PO SCH (20:39)
[2020-03-19] MEDS: QUEtiapine 50 MG TAB PO SCH (20:40)
[2020-03-20 05:36] VITALS: BP 97/60; PULSE 56; TEMP 98.2
[2020-03-20] MEDS: HEPARIN SODIUM,PORCINE 5,000 UNIT/ML 1 ML VIAL SQ SCH (07:39)
[2020-03-20] MEDS: LACTULOSE 20 GM/30 ML CUP PO SCH (07:39)
[2020-03-20] MEDS: DOCUSATE 100 MG CAP PO SCH (07:40)
[2020-03-20] MEDS: SODIUM CHLORIDE 0.9% IRRIG 1,000 ML BTL IRRIGATION SCH (07:40)
[2020-03-20] MEDS: LOSARTAN 50 MG TAB PO SCH (07:40)
[2020-03-20] MEDS: PANTOPRAZOLE 40 MG TABLET PO SCH (07:40)
[2020-03-20] MEDS: OXcarbazepine 150 MG TAB PO SCH (07:40)
--- NOTE | 2020-03-20 07:48 | P.DS ---
Providers Date of admission: 03/16/20 14:50 Expected date of discharge: 03/20/20 Attending physician: Og Lindsey MD Consults: 03/16/20 00:57 Consult Physician Stat Consulting Provider: Antonina Lemons Consult Reason/Comments: Bowel obstruction Do you want consulting provider notified?: Yes Primary care physician: [facility] Course: 74-year-old male with the history of developmental delay patient of Dr. Juares with past medical history of prostate cancer, seizure disorder, osteoporosis, legally blind comes in with acute abdominal pain which is g eneralized in nature. Patient is a poor historian due to his intellectual disability and is unable to provide any history. According to the ER physician and the caregiver history patient takes daily stool softener has been and had not had any issue with constipation in the past. He did not have a bowel movement daily for yesterday. He gets enema regularly but had a small output to the enema given yesterday. Caregiver felt the abdomen was more distended and patient had discomfort when palpating the abdomen. CT abdomen and pelvis was done in the ER that suggested some Hytone hernia with the dilation of stoma with air and fluid level and dilated esophagus concerning for gastric outlet obstruction versus gastroparesis. Fecal matter was noted in the large bowel but no concern for infection was made. Vitals as a stable temp is 98 pulse 104 respiratory rate 18 blood pressure 146/84 oxygen saturation 96% on room air. On assessment patient's labs WBC 14.3 hemoglobin is 11.9 sodium 136 BUN 26 creatinine 0.5 glucose of 119. Patient did get milk of molasses yesterday with no improvement and hence bowel movements. Patient's multiple medications for inducing constipation continue sodium bicarb, calcium tablets, iron tablets. GI consulted for abdominal pain, gastric outlet obstruction noted on the CAT scan. 03/17: Patient has been seen by Dr. Lemons and is scheduled for EGD to rule out gastric outlet obstruction. This is scheduled for today. He has been afebrile, heart rate 62, blood pressure 100/64. Pulse ox 95% on room air. WBC 14.3 and hemoglobin 11.9. Discharge plan will be to return to [facility]. 03/18: Patient underwent EGD yesterday with Dr. Lemons which revealed gastric distention and gastritis. Patient is scheduled for gastric emptying study johnie rrow which had to be delayed due to use of Protonix. Patient is currently on clear liquid diet. He has had a few smears on his diaper but no bowel movement. Patient will be nothing by mouth after midnight. He has been afebrile, heart rate 60, blood pressure 110/64, pulse ox 94% on room air. Repeat blood work reveals normal white count of 6.6, hemoglobin 10.7, platelet count 233. Creatinine 0.57, chloride 111, Plan is for patient to return [facility] at the time of discharge. Caregiver may come into stay with the patient today. 03/19: Patient underwent gastric emptying study today. Report is pending. Pathology from EGD remains pending as well. Patient has been afebrile, heart rate 59, blood pressure 98/63, pulse ox 97% on room air. Patient did have a l arge soft bowel movement at midnight. Anticipate discharge within 24 hours. 03/20: Gastric emptying study revealed gastroparesis. Dr. Lemons has recommended low-dose Reglan before meals. Patient has been having bowel movements. He has been afebrile, heart rate 56, blood pressure 97/60, pulse ox 95% on room air. Patient will be discharged home today in stable condition. Assessment and plan #1 acute abdominal pain likely secondary to constipation and gastroparesis, gastric outlet obstruction ruled out on EGD. #2 hypertension #3 acute kidney injury #4 history of seizures #5 GERD #6 COVID-19 infection not present Discharge plan: Return to [facility] Impression and plan of care have been directed as dictated by the signing physician. Jenny Olvera nurse practitioner acting as scribe for signing physician. Patient Condition at Discharge: Good Plan - Discharge Summary Discharge Rx Participant: No New Discharge Prescriptions: New Metoclopramide [Reglan] 5 mg PO ACHS #120 tab Continue Ibuprofen [Motrin] 800 mg PO Q8H PRN PRN Reason: Pain Lactulose 10 gm PO DAILY PRN PRN Reason: Constipation Menthol [Biofreeze] 1 applic TOPICAL QID PRN PRN Reason: Pain Menthol-Zinc Oxide Oint [Calmoseptine Oint] 1 applic TOPICAL BID PRN PRN Reason: OPEN SORES ON BUTTOCK Nystatin 100,000 Unit/gm Powd [Mycostatin Powder] 1 applic TOPICAL BID PRN PRN Reason: RED GROIN AREA Fluticasone Nasal [place] [Flonase Nasal [place]] 2 spr EA NOSTRIL HS PRN PRN Reason: Allergy Symptoms Fluocinonide 1 applic TOPICAL DAILY PRN PRN Reason: DRY SCALP Polyethylene Glycol 3350 [Miralax] 17 gm PO DAILY PRN PRN Reason: 1ST DAY NO BM Magnesium Hydroxide [Milk of Magnesia] 2,400 mg PO ONCE PRN PRN Reason: 2ND DAY NO BM Na Phos,M-B/Na Phos,Di-Ba [Fleet Adult] 133 ml RECTAL ONCE PRN PRN Reason: 3RD DAY DIFFICULT BM QUEtiapine [SEROquel] 100 mg PO HS@1929 QUEtiapine [SEROquel] 50 mg PO HS@1929 Doxazosin Mesylate 8 mg PO DAILY@1929 Loratadine 10 mg PO DAILY@1929 Sodium Chloride 0.9% Irrigatio [Saline 0.9% Irrigation Bottle] 5 ml IRRIGATION BID@ Sodium Bicarbonate Tab 650 mg PO BID@ OXcarbazepine [Trileptal] 150 mg PO BID@ Calcium Polycarbophil [Fiber-Lax] 625 mg PO TID@729, Omeprazole 20 mg PO DAILY@729 Docusate [Colace] 100 mg PO DAILY@729 Selenium Sulfate Shampoo 1 applic TOPICAL SUWE Losartan Potassium 50 mg PO DAILY@729 Ferrous Sulfate [Iron] 325 mg PO DAILY@729 Acetaminophen [Tylenol] 650 mg PO Q8H PRN PRN Reason: Pain Discontinued Calcium Carbonate/Vitamin D3 [Calcium 500-Vit D3 200 Tablet] 1 tab PO DAILY@729 Discharge Medication List Acetaminophen [Tylenol] 650 mg PO Q8H PRN 03/15/20 [History] Calcium Polycarbophil [Fiber-Lax] 625 mg PO TID@729,1599,192903/15/20 [History] Docusate [Colace] 100 mg PO DAILY@72903/15/20 [History] Doxazosin Mesylate 8 mg PO DAILY@192903/15/20 [History] Ferrous Sulfate [Iron] 325 mg PO DAILY@72903/15/20 [History] Fluocinonide 1 applic TOPICAL DAILY PRN 03/15/20 [History] Fluticasone Nasal [place] [Flonase Nasal [place]] 2 spr EA NOSTRIL HS PRN 03/15/20 [History] Ibuprofen [Motrin] 800 mg PO Q8H PRN 03/15/20 [History] Lactulose 10 gm PO DAILY PRN 03/15/20 [History] Loratadine 10 mg PO DAILY@192903/15/20 [History] Losartan Potassium 50 mg PO DAILY@72903/15/20 [History] Magnesium Hydroxide [Milk of Magnesia] 2,400 mg PO ONCE PRN 03/15/20 [History] Menthol [Biofreeze] 1 applic TOPICAL QID PRN 03/15/20 [History] Menthol-Zinc Oxide Oint [Calmoseptine Oint] 1 applic TOPICAL BID PRN 03/15/20 [History] Na Phos,M-B/Na Phos,Di-Ba [Fleet Adult] 133 ml RECTAL ONCE PRN 03/15/20 [History] Nystatin 100,000 Unit/gm Powd [Mycostatin Powder] 1 applic TOPICAL BID PRN 03/15/20 [History] OXcarbazepine [Trileptal] 150 mg PO BID@03/15/20 [History] Omeprazole 20 mg PO DAILY@72903/15/20 [History] Polyethylene Glycol 3350 [Miralax] 17 gm PO DAILY PRN 03/15/20 [History] QUEtiapine [SEROquel] 50 mg PO HS@192903/15/20 [History] QUEtiapine [SEROquel] 100 mg PO HS@192903/15/20 [History] Selenium Sulfate Shampoo 1 applic TOPICAL SUWE 03/15/20 [History] Sodium Bicarbonate Tab 650 mg PO BID@03/15/20 [History] Sodium Chloride 0.9% Irrigatio [Saline 0.9% Irrigation Bottle] 5 ml IRRIGATION BID@03/15/20 [History] Metoclopramide [Reglan] 5 mg PO ACHS #120 tab 03/20/20 [Rx] Follow up Appointment(s)/Referral(s): Morgan Juares DO [Primary Care Provider] - 1 Week Patient Instructions/Handouts: Metoclopramide (By mouth), Constipation (DC) Activity/Diet/Wound Care/Special Instructions: [facility] will transport the pt at time of d/c. Discharge Disposition: HOME SELF-CARE
[2020-03-20] MEDS ORDERED: METOCLOPRAMIDE 5 MG TAB PO SCH (12:30)
== END 2020-03-20 11:22 | disposition home or self-care (01) | DRG 392 ==
LOC: EC 16:42 → 5NMEDONC 23:54 → OBSVTOIN 03-16 14:50
PROVIDERS: ADMIT Internal Medicine; ATTEND Internal Medicine
PROC: 0DB68ZX Excision of Stomach, Via Natural or Artificial Opening Endoscopic, Diagnostic (ICD-10-PCS; principal; 2020-03-17 10:20)
DX: K31.84 Gastroparesis (principal); N17.9 Acute kidney failure, unspecified; D64.9 Anemia, unspecified; Z11.59 Encounter for screening for other viral diseases; F79 Unspecified intellectual disabilities; G40.909 Epilepsy, unspecified, not intractable, without status epilepticus; H54.8 Legal blindness, as defined in USA; I10 Essential (primary) hypertension; K59.00 Constipation, unspecified; K21.9 Gastro-esophageal reflux disease without esophagitis; K29.70 Gastritis, unspecified, without bleeding; M81.0 Age-related osteoporosis without current pathological fracture; Z79.899 Other long term (current) drug therapy; Z83.3 Family history of diabetes mellitus; Z85.46 Personal history of malignant neoplasm of prostate; Z96.649 Presence of unspecified artificial hip joint; K44.9 Diaphragmatic hernia without obstruction or gangrene; K31.89 Other diseases of stomach and duodenum; Z88.1 Allergy status to other antibiotic agents; Z88.0 Allergy status to penicillin
CPT/HCPCS: 36415; 43239; 74018; 74177; 78264; 80053; 83605; 85025; 85027; 85610; 85730; 88305; 99285